=== PATIENT | male | born 1950 | race Two or more races ===

== ENCOUNTER → 2017-01-18 | Outpatient (CLI) | payer MEDICARE ==
[~2017-01-18] MED LIST: ASPIRIN EC81 MG ORAL; GLIPIZIDE5 MG ORAL; HUMULIN N100 UNIT/1 SUBQ; LOSARTAN POTASS50 MG ORAL; METFORMIN HCL850 M1 ORAL; MONTELUKAST SOD10 MG ORAL; PREDNISONE10 MG ORAL; PROAIR HFA8.5 GM INH; SIMVASTATIN10 MG ORAL; SPIRIVA18 MCG INH; SYMBICORT 1601 PUFFS INH
--- NOTE | 2017-01-31 19:49 | Consultation ---
DATE OF CONSULTATION: 01/18/2017 CHIEF COMPLAINT: The patient was referred by Dr. Chopra for evaluation of the screening colonoscopy and chronic acid reflux disease. HISTORY OF PRESENT ILLNESS: This is a very pleasant 66-year-old, [place] male without prior history of any endoscopy and colonoscopy. The patient has been complained of some chronic acid reflux disease and no prior colonoscopy has been done but even the patient has significant asthma. The patient was referred to have the procedure done in the hospital. PAST MEDICAL HISTORY: 1. Asthma. 2. Hypertension. 3. Diabetes. PAST SURGICAL HISTORY: Sick sinus surgery. MEDICATIONS: Please see medication reconciliation list. ALLERGIES: No known drug allergies. FAMILY HISTORY: No family history of GI malignancies. SOCIAL HISTORY: The patient denies any tobacco, alcohol, or illicit drug use. PHYSICAL EXAMINATION: GENERAL: The patient is well-developed male, in no acute distress. HEENT: Normocephalic and atraumatic. Sclerae anicteric. NECK: Supple. No lymphadenopathy. CARDIOVASCULAR: Regular rate and rhythm. Plus S1 and S2. LUNGS: Clear to auscultation bilaterally. ABDOMEN: Soft and nontender. No rebound. No guarding. EXTREMITIES: No cyanosis, clubbing, or edema. ASSESSMENT AND PLAN: This is a very pleasant 66-year-old [place] male, who will need a screening colonoscopy and also complained of chronic acid reflux disease. So, we can also schedule him for an endoscopy on the same day. The patient was given the prep instructions and medication for the prep and risks and benefits of procedure was explained to him in detail and the patient agreed to it. We will go ahead and schedule him for 01/31/2017. I want to thank Dr. Vince Chopra for this kind referral. Damien Machuca M.D. DR: KEMAL JOB#: [id number] CC: Vince Chopra M.D.
== END | disposition home or self-care (01) ==
LOC: PAN 13:57
DX: K21.9 Gastro-esophageal reflux disease without esophagitis (principal); J45.909 Unspecified asthma, uncomplicated; I10 Essential (primary) hypertension; E11.9 Type 2 diabetes mellitus without complications
CPT/HCPCS: 99201

== ENCOUNTER → 2017-01-31 | Day surgery (SDC) | payer MEDICARE, BC ==
[~2017-01-31] VITALS: Ht 170.2 cm; Wt 70.8 kg
[2017-01-31] VITALS (7 sets, daily range): BP systolic 118–142; BP diastolic 50–76
[~2017-01-31] MED LIST changes: +Albuterol ud Inhalation HHN ONE; +Ipratropium 0.02% Inh Soln 2.5ml UD HHN ONE; +LR 1000ml ONE; +Lidocaine 1% MPF 10mg/ml 5ml ONE; +Propofol 10mg/ml 20ml IV ONE
[2017-01-31 10:44] LABS: BASOPHILS % (AUTO) 0.8 % (0.0-2.0); EOSINOPHILS % (AUTO) 8.8 % (0.0-3.0); LYMPHOCYTES % (AUTO) 32.2 % (20.0-45.0); MEAN CORPUSCULAR HEMOGLOBIN 30.2 PG (27.0-31.0); MEAN CORPUSCULAR HGB CONC 33.1 G/DL (32.0-36.0); MEAN CORPUSCULAR VOLUME 91 FL (80-99); MEAN PLATELET VOLUME 6.8 FL (6.5-10.1); MONOCYTES % (AUTO) 8.2 % (1.0-10.0); PLATELET COUNT 396 K/UL (150-450); RED BLOOD COUNT 3.87 M/UL (4.70-6.10); RED CELL DISTRIBUTION WIDTH 11.8 % (11.6-14.8)
[2017-01-31 11:04] LABS: CALCIUM 9.1 mg/dL (8.6-10.2); CREATININE 1.5 mg/dL (0.7-1.2); GLOMERULAR FILTRATION RATE 46.7 mL/min (>60); POTASSIUM 3.8 mEQ/L (3.4-4.9)
--- NOTE | 2017-01-31 11:25 | Pre-Procedure Note/Attestation ---
Pre-Procedure Note/Attestation Complete Prior to Procedure Planned Procedure: not applicable Procedure Narrative: egd/colon Indications for Procedure Pre-Operative Diagnosis: screening colon, GERD Attestation I attest that I discussed the nature of the procedure; its benefits; risks and complications; and alternatives (and the risks and benefits of such alternatives ), prior to the procedure, with the patient (or the patient's legal product support representative). I attest that, if there was a reasonable possibility of needing a blood transfusion, the patient (or the patient's legal product support representative) was given the [facility] standardized written summary, pursuant to the [place] Blood Safety Act ([place] Health and Safety Code # 1645, as amended). I attest that I re-evaluated the patient just prior to the surgery and that there has been no change in the patient's H&P, except as documented below: RENU POLANCO Jan 31, 2017 11:25
--- NOTE | 2017-01-31 11:25 | Short Stay Surgery H&P ---
History of Present Illness History of Present Illness Chief Complaint see full consult note HPI Armen Chadwick is a 66 year old male who was admitted on for Anemia Patient History Allergies: Coded Allergies: No Known Allergies (Unverified , 01/31/17) PAST MEDICAL HISTORY: Past Surgeries: Social History: Medication History Scheduled Albuterol Sulfate* (Proair Hfa*), 1 PUFF INH Q6H, (Reported) Aspirin Ec* (Aspirin Ec*), 81 MG ORAL DAILY, (Reported) Budesonide/Formoterol Fumarate (Symbicort 160-4.5 Mcg Inhaler), 1 PUFF INH TWICE A DAY, (Reported) Glipizide* (Glipizide*), 10 MG ORAL BIDAC, (Reported) Losartan Potassium* (Losartan Potassium*), 100 MG ORAL DAILY, (Reported) Metformin Hcl* (Metformin Hcl*), 850 MG ORAL DAILY, (Reported) Montelukast Sodium* (Montelukast Sodium*), 10 MG ORAL DAILY, (Reported) Prednisone* (Prednisone*), 10 MG ORAL DAILY, (Reported) Simvastatin (Zocor), 10 MG ORAL BEDTIME, (Reported) Tiotropium Adona* (Spiriva*), 2 PUFF INH DAILY, (Reported) Miscellaneous Medications Nph, Human Insulin Isophane (Humulin N), 0 SUBQ, (Reported) Physical Exam Vital Signs Last Vital Signs Date Time Temp Pulse Resp B/P Pulse Ox O2 Delivery O2 Flow Rate FiO2 01/31/17 11:16 86 16 97 Room Air 21 01/31/17 10:13 97.7 140/69 Labs Laboratory Tests Test 01/31/17 10:35 White Blood Count 7.0 K/UL (4.8-10.8) Red Blood Count 3.87 M/UL (4.70-6.10) L Hemoglobin 11.7 G/DL (14.2-18.0) L Hematocrit 35.3 % (42.0-52.0) L Mean Corpuscular Volume 91 FL (80-99) Mean Corpuscular Hemoglobin 30.2 PG (27.0-31.0) Mean Corpuscular Hemoglobin Concent 33.1 G/DL (32.0-36.0) Red Cell Distribution Width 11.8 % (11.6-14.8) Platelet Count 396 K/UL (150-450) Mean Platelet Volume 6.8 FL (6.5-10.1) Neutrophils (%) (Auto) 50.0 % (45.0-75.0) Lymphocytes (%) (Auto) 32.2 % (20.0-45.0) Monocytes (%) (Auto) 8.2 % (1.0-10.0) Eosinophils (%) (Auto) 8.8 % (0.0-3.0) H Basophils (%) (Auto) 0.8 % (0.0-2.0) Sodium Level 143 mEQ/L (135-145) Potassium Level 3.8 mEQ/L (3.4-4.9) Chloride Level 100 mEQ/L (98-107) Carbon Dioxide Level 29 mEQ/L (20-30) Anion Gap 14 (5-15) Blood Urea Nitrogen 23 mg/dL (7-23) Creatinine 1.5 mg/dL (0.7-1.2) H Estimat Glomerular Filtration Rate 46.7 mL/min (>60) Glucose Level 130 mg/dL (74-106) H Calcium Level 9.1 mg/dL (8.6-10.2) Plan Attestation Are the patient's medical conditions optimized for surgery? RENU POLANCO Jan 31, 2017 11:25
--- NOTE | 2017-01-31 11:56 | Anethesia Preoperative Eval ---
Anesthesia Pre-op PMH/ROS General Date of Evaluation: Jan 31, 2017 Time of Evaluation: 11:54 Anesthesiologist: sera Mallampati Score Class I : Soft palate, uvula, fauces, pillars visible Class II: Soft palate, uvula, fauces visible Class III: Soft palate, base of uvula visible Class IV: Only hard plate visible Mallampati Classification: Class II Surgeon: devin Diagnosis: anemia Surgical Procedure: EGD/Colonoscopy Anesthesia History: none Family History: no anesthesia problems Allergies: Coded Allergies: No Known Allergies (Unverified , 01/31/17) Medications: see eMAR Past Medical History Cardiovascular: Reports: HTN Pulmonary: Reports: asthma Gastrointestinal/Genitourinary: Denies: CRI, ESRD, GERD, other Neurologic/Psychiatric: Denies: CVA, TIA, dementia, depression/anxiety, other Endocrine: Reports: DM, steroids HEENT: Denies: WRANGE[place] (L), WR[place] (R), cataract (L), cataract (R), glaucoma, other Hematology/Immune: Reports: anemia PSxH Narrative: chart Anesthesia Pre-op Phys. Exam Physician Exam Last Vital Signs Date Time Temp Pulse Resp B/P Pulse Ox O2 Delivery O2 Flow Rate FiO2 01/31/17 11:17 87 16 Room Air 21 01/31/17 11:16 97 01/31/17 10:13 97.7 140/69 Constitutional: NAD Neurologic: CN 2-12 intact Cardiovascular: RRR Respiratory: CTA Gastrointestinal: S/NT/ND Airway Exam Mallampati Classification 2 Mallampati Score: Class II MO: full ROM: full Dentures: no lower, no upper Anesthesia Pre-op A/P Labs Hematology Test 01/31/17 10:35 White Blood Count 7.0 K/UL (4.8-10.8) Red Blood Count 3.87 M/UL (4.70-6.10) L Hemoglobin 11.7 G/DL (14.2-18.0) L Hematocrit 35.3 % (42.0-52.0) L Mean Corpuscular Volume 91 FL (80-99) Mean Corpuscular Hemoglobin 30.2 PG (27.0-31.0) Mean Corpuscular Hemoglobin Concent 33.1 G/DL (32.0-36.0) Red Cell Distribution Width 11.8 % (11.6-14.8) Platelet Count 396 K/UL (150-450) Mean Platelet Volume 6.8 FL (6.5-10.1) Neutrophils (%) (Auto) 50.0 % (45.0-75.0) Lymphocytes (%) (Auto) 32.2 % (20.0-45.0) Monocytes (%) (Auto) 8.2 % (1.0-10.0) Eosinophils (%) (Auto) 8.8 % (0.0-3.0) H Basophils (%) (Auto) 0.8 % (0.0-2.0) Chemistry Test 01/31/17 10:35 Sodium Level 143 mEQ/L (135-145) Potassium Level 3.8 mEQ/L (3.4-4.9) Chloride Level 100 mEQ/L (98-107) Carbon Dioxide Level 29 mEQ/L (20-30) Anion Gap 14 (5-15) Blood Urea Nitrogen 23 mg/dL (7-23) Creatinine 1.5 mg/dL (0.7-1.2) H Estimat Glomerular Filtration Rate 46.7 mL/min (>60) Glucose Level 130 mg/dL (74-106) H Calcium Level 9.1 mg/dL (8.6-10.2) Studies Pre-op Studies: EKG - SR lbbb Risk Assessment & Plan Assessment: denies cp/sob; received breathing tx Plan: mac Status Change Before Surgery: No Pre-Antibiotics Drug: none SHAHEEN WHITE CRNA Jan 31, 2017 11:56
--- NOTE | 2017-01-31 12:07 | Endoscopy Procedure Note ---
Endoscopy Procedure Note Indication for Procedure: gerd, screening colon Procedures Performed: EGD, colonoscopy Operative Findings/Diagnosis: gastritis, poor prep Specimen: yes Pt Tolerated Procedure Well: Yes Estimated Blood Loss: none Anesthesiologist: yadi Anesthesia: MAC Implant(s) used?: No 50 yrs or older w/o bx or poly: No 10yrs. F/U not recommended: Yes If not recommended, why?: Above average risk 10 yrs. F/U needed: Yes 18 years or older w/prev. colo: No RENU POLANCO Jan 31, 2017 12:07
--- NOTE | 2017-01-31 12:40 | 48 Hour Post Anesthesia Eval ---
Post Anesthesia Evaluation Procedure: egdcolonoscopy Date of Evaluation: Jan 31, 2017 Time of Evaluation: 12:39 Blood Pressure Systolic: 131 0: 75 Pulse Rate: 70 O2 Sat by Pulse Oximetry: 99 Airway: patent Nausea: No Vomiting: No Hydration Status: adequate Mental Status/LOC: patient returned to baseline Post-Anesthesia Complications: none Follow-up care needed: N/A SHAHEEN WHITE CRNA Jan 31, 2017 12:40
--- NOTE | 2017-01-31 12:44 | Immediate Post-Op Evaluation ---
Immediate Post-Op Evalulation Immediate Post-Op Evalulation Procedure: egdcolonoscopy Date of Evaluation: Jan 31, 2017 Time of Evaluation: 12:11 Blood Pressure Systolic: 135 Blood Pressure Diastolic: 65 Pulse Rate: 70 Respiratory Rate: 14 O2 Sat by Pulse Oximetry: 100 Temperature (Fahrenheit): 97.6 Nausea: No Vomiting: No Patient Status: awake, reacts, patent Hydration Status: adequate Drug: none SHAHEEN WHITE CRNA Jan 31, 2017 12:44
--- NOTE | 2017-01-31 20:39 | Procedure Note ---
DATE OF PROCEDURE: 01/31/2017 SURGEON: Damien Machuca M.D. PROCEDURE: Upper endoscopy with biopsy and colonoscopy. ANESTHESIA: Per Destinee REYES. INSTRUMENT: Olympus adult flexible upper endoscope and colonoscope. INDICATION: Screening colonoscopy evaluation and chronic acid reflux disease. REASON FOR PROCEDURE: The procedure, risks, benefits, and possible consequences, including hemorrhage, aspiration, perforation and infection, and alternative treatments, were explained to the patient/legal guardian by Dr. Damien Machuca and the patient/legal guardian understood and accepted these risks. DESCRIPTION OF PROCEDURE: After informed consent was obtained and the patient was adequately sedated, Olympus upper endoscope was advanced from mouth into second portion of the duodenum and retroflexion was performed in the stomach. The patient had diffuse gastritis. Random biopsy from antrum was obtained to rule out H. pylori infection. Otherwise, the rest of colonoscopy examination was grossly within normal limits. The patient also had evidence of maybe LA criteria grade 1 distal esophagitis with some inflammatory changes at the GE junction suggestive of acid reflux. At this time, the upper endoscope was retrieved and the patient was turned over for colonoscopy. First, a rectal exam was performed, which was normal. Then, the scope was advanced from the rectum into the cecum, documented by appendiceal orifice, ileocecal valve, and upper quadrant palpation. Quality of prep was very poor. The patient had solid stool throughout the colon. I would say about 50% of the colonic mucosa was not examined with this prep, especially in the left colon. The patient had evidence of few scattered diverticulosis in the right colon, especially close to the cecum and ascending colon area. No obvious mass, polyp, or active source of gastrointestinal bleeding was seen. Retroflexion of rectum was not performed because the patient has stool in the rectum. SUMMARY OF FINDINGS: 1. Gastritis, status post biopsy. 2. LA criteria grade 1 distal esophagitis. 3. Poor colonic prep, 50% of the colonic mucosa was not examined. RECOMMENDATIONS: 1. Start the patient on PPI given the esophagitis. 2. Follow up biopsies and treat accordingly. 3. We recommend the patient to have a stool test for DNA and maybe stool occult blood. If it becomes positive then the patient will need a repeat colonoscopy with better prep. I want to thank, Dr. Chopra, for this kind referral. Damienblack Machuca M.D. DR: KEMAL JOB#: [id number] CC: Vince Chopra M.D.
--- NOTE | 2017-02-02 18:37 | Cardiology Report ---
APPROVED REPORT EKG Measurement Heart [id number] Normal sinus rhythm Left axis deviation LBBB Abnormal ECG
== END | disposition home or self-care (01) ==
LOC: GAS 09:16
DX: Z12.11 Encounter for screening for malignant neoplasm of colon (principal); K57.30 Diverticulosis of large intestine without perforation or abscess without bleeding; K21.9 Gastro-esophageal reflux disease without esophagitis; K29.50 Unspecified chronic gastritis without bleeding; K20.9 Esophagitis, unspecified; D64.9 Anemia, unspecified; I10 Essential (primary) hypertension; E11.9 Type 2 diabetes mellitus without complications; J45.909 Unspecified asthma, uncomplicated; Z79.84 Long term (current) use of oral hypoglycemic drugs; Z79.82 Long term (current) use of aspirin; Z79.52 Long term (current) use of systemic steroids; Z79.899 Other long term (current) drug therapy
CPT/HCPCS: 36415; 43239; 80048; 82962; 85025; 93005; 94640; 94664; G0121; J2704; J7120; 94003; 94150

== ENCOUNTER 2017-03-28 13:55 | Outpatient (CLI) | payer MEDICARE, BC ==
[~2017-03-28 13:55] MED LIST changes: -Albuterol ud Inhalation HHN ONE; -Ipratropium 0.02% Inh Soln 2.5ml UD HHN ONE; -LR 1000ml ONE; -Lidocaine 1% MPF 10mg/ml 5ml ONE; -Propofol 10mg/ml 20ml IV ONE
--- NOTE | 2017-03-28 14:54 | GI Progress Note ---
Assessment/Plan Problems: (1) Gastritis ICD Codes: K29.70 - Gastritis, unspecified, without bleeding SNOMED: 8289278 (2) Esophagitis ICD Codes: K20.9 - Esophagitis, unspecified SNOMED: 85846264 (3) Constipation ICD Codes: K59.00 - Constipation, unspecified SNOMED: 71163680 Status: stable Status Narrative Seen with Dr. Machuca. Assessment/Plan EGD/COLONOSCOPY REVIEW SUMMARY OF FINDINGS: 1. Gastritis, status post biopsy. 2. LA criteria grade 1 distal esophagitis. 3. Poor colonic prep, 50% of the colonic mucosa was not examined. RECOMMENDATIONS: cont ppi fu biopsies >> unremarkable ordered stool test for DNA and OB stool rx Amitiza 24 repeat colonoscopy within the year with better prep RTC after stool samples analyzed Subjective Gastrointestinal/Abdominal: Reports: no symptoms Subjective egd/colonoscopy review Objective T 98.0 BP 135/64 P 79 97 RA General Appearance: no apparent distress, alert Cardiovascular: normal rate Respiratory/Chest: normal breath sounds, no respiratory distress Abdominal Exam: normal bowel sounds, non tender, soft Extremities: normal range of motion Jessa Waldron N.P. March 28, 2017 14:54
== END 2017-03-28 14:24 | disposition home or self-care (01) ==
LOC: PAN 13:55
DX: K29.70 Gastritis, unspecified, without bleeding (principal); K20.9 Esophagitis, unspecified; K59.00 Constipation, unspecified
CPT/HCPCS: 99211

== ENCOUNTER 2017-03-29 14:29 | Outpatient (CLI) | payer MEDICARE, BC | END 2017-03-29 14:49 | disposition home or self-care (01) | LOC: PAN 14:29 | DX: K59.00 Constipation, unspecified (principal) | CPT/HCPCS: 82270 ==